=== PATIENT | male | born 1935 | race Caucasian/White ===

== ENCOUNTER 2023-09-09 12:20 | Day surgery (SDC) | payer OTHER ==
[2023-09-06 10:49] LABS: Hematocrit 37.8 % (39.6-49.0); Lymphocytes % 31.3 % (15.3-44.8); MCV 93.6 fL (80-100); MPV 7.6 fL (7.6-11.3); Platelets 363 thou/uL (152-406); RBC Red Blood Cell Count 4.04 M/uL (4.33-5.43)
[2023-09-06 10:59] LABS: Protime INR 0.9
[2023-09-06 11:05] LABS: Potassium 4.2 mEq/L (3.5-5.1)
--- NOTE | 2023-09-06 11:27 | RAD REPORT ---
EXAM DESCRIPTION: Charu Johnson And Lat (2 Views)09/06/2023 11:04 am CLINICAL HISTORY: Preop for cardiac catheterization. Hypertension COMPARISON: None FINDINGS: A 2 centimeter opacity overlies mid lateral left lung. The remainder of the lungs appear clear of acute infiltrate. The heart is normal size Postsurgical changes involve the chest IMPRESSION: A 2 centimeter opacity overlies the mid lateral left lung. It probably is chronic and ma y represent pleural or parenchymal scarring. Follow up chest x-ray in 1 month recommended for re-eval uation
--- NOTE | 2023-09-07 17:36 | EKG ---
Test Date: 2023-09-06 Test Time: 11:38:23 House Director: PAOLO MEASUREMENT RESULTS: Intervals: Rate: 59 OK: 152 QRSD: 98 QT: 576 QTc: 570 [place]: P: 56 OK: 152 QRS: 56 T: 72 INTERPRETIVE STATEMENTS: Sinus bradycardia Nonspecific T wave abnormality Prolonged QT Abnormal ECG Compared to ECG 08/11/1995 08:52:00 T-wave abnormality now present Prolonged QT interval now present Electronically Signed On 09-07-23 17:34:11 RO[address] MACHINE OPERATOR by Del Lucero
[2023-09-09] MEDS ORDERED: NA CHLORIDE 0.9% 500 ML ONE (12:25)
[2023-09-09] MEDS ORDERED: VERAPAMIL HCL 10 MG/4 ML VIAL IV ONE (13:15)
[2023-09-09] MEDS ORDERED: MIDAZOLAM HCL 2 MG/2 ML INJ ONE (13:15)
[2023-09-09] MEDS ORDERED: FENTANYL CITR 100 MCG/2 ML ONE (13:15)
[2023-09-09] MEDS ORDERED: LIDOCAINE 1% 20 ML MDV ONE (13:15)
[2023-09-09] MEDS ORDERED: HEPA 1000U/500MLS 2,000 UNIT/1,000 ML BAG IV ONE (13:15)
[2023-09-09] MEDS ORDERED: ATROPINE SULF 1 MG/10 ML SYR IV ONE (13:16)
[2023-09-09] MEDS ORDERED: HEPARIN 10,000 UNIT/10 ML VIAL IV ONE (13:16)
[2023-09-09] MEDS ORDERED: CLOPIDOGREL 75 MG TABLET ONE (13:16)
[2023-09-09] MEDS ORDERED: HEPARIN 5000 UNIT/ML 1 ML VIAL ONE (13:16)
[2023-09-09] MEDS ORDERED: TICAGRELOR 90 MG TABLET PO ONE (13:16)
[2023-09-09] MEDS ORDERED: ASPIRIN 325 MG TAB ONE (13:17)
[2023-09-09 16:40] VITALS: BP 132/66; O2SAT 98
--- NOTE | 2023-09-10 01:09 | OP ---
Date of Procedure: 09/09/2023 Surgeon: BRYSON RESENDIZ Procedure Performed: Selective coronary angiogram with bypass graft study. Indication: Unstable angina. Access: Right femoral artery 6-Fijian closed with 6-Fijian Angio-Seal. Complications: None. Bleeding: Less than 20 mL. Description Of Procedure: After risks, benefits, and alternatives were explained, the patient agreed to procedure and signed informed consent. The patient was brought into cardiac catheterization [facility], prepped and draped in a sterile fashion. Then, I accessed right femoral artery using micropu ncture kit, ultrasound guidance and fluoroscopy, placed a 6-Fijian Trego sheath. Moderate sedatio n was achieved using fentanyl and Versed. Total sedation time was 45 minutes and then I took a 6-[facility] JL4 catheter into the aortic root over a J-wire, engaged left main, took standard views, and exch anged for a 6-Fijian JR4 catheter, engaged the RCA and SVG graft to the OM, took standard views and t hen exchanged for 4-Fijian IM catheter, engaged the KC, took standard views, and then removed the c atheter and the sheath. 6-Fijian Angio-Seal was used for closure with good hemostasis. Findings: 1.Left main; large, with distal 70% to 80% stenosis. 2.LAD; proximal 60% to 70% stenosis, mid 70% stenosis and distally is normal. Normal diagonal branc hes. 3.Left circumflex very large and dominant. OM has ostial 60% stenosis. Rest of the left circumflex is normal. 4.RCA; small, nondominant. No significant disease. Bypass Grafts: 1.Widely patent SVG to OM branch. 2.Widely patent KC to LAD. 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 Plan: Medical management. SR/MODL Voice ID: [id number] Report ID: [id number]
== END 2023-09-09 16:39 | disposition home or self-care (01) ==
LOC: CCL 12:20
PROVIDERS: ATTEND Internal Medicine
DX: I25.110 Atherosclerotic heart disease of native coronary artery with unstable angina pectoris (principal); I73.9 Peripheral vascular disease, unspecified; I10 Essential (primary) hypertension; E78.5 Hyperlipidemia, unspecified; Z95.1 Presence of aortocoronary bypass graft; Z79.82 Long term (current) use of aspirin; Z79.899 Other long term (current) drug therapy; Z88.8 Allergy status to other drugs, medicaments and biological substances; Z91.013 Allergy to seafood; Z82.49 Family history of ischemic heart disease and other diseases of the circulatory system
CPT/HCPCS: 93005; 85025; 80048; 36415; 83721; 85610; 85730; 71046; 93455; 76937; C1893; Q9966; C1760; G0269; J2001; J2250; J3010; J7040; 99152; 99153; J0461; J1644